=== PATIENT | female | born 1985 | race Caucasian/White ===

== ENCOUNTER 2025-03-15 16:53 | Emergency (ER) | payer BC, SELFPAY ==
[2025-03-15 17:08] VITALS: BP 106/67
--- NOTE | 2025-03-15 21:03 | ED.GENMED ---
History of Present Illness
General
Chief Complaint: Back Pain
Source: patient
Exam Limitations: none
Time Seen by Provider: 03/15/25 20:44
History of Present Illness
History of Present Illness:
39-year-old female presents complaining of lower back pain with pain radiating down the left posterior thigh and left posterior calf. This worsened all of a sudden yesterday. She has known chronic back pain. She has bilateral pars defects at L5.
She is due for an epidural steroid injection this coming Tuesday. She has been using ibuprofen in the past which has helped however last 2 days it has not. No numbness. No fever. No new injury. She is having trouble walking secondary to the
pain.
Phy Exam
Physical Exam
Physical Exam:
General: Well-appearing female no acute respiratory distress
HEENT: Normal cephalic atraumatic
Musculoskeletal exam: Patient is tender to the lower lumbar spine and the left lumbosacral junction.
Neurologic exam: Good strength to lower extremities bilateral patellar reflexes 2+. Negative straight leg raise bilaterally. Good sensation bilateral lower extremities
Course
Orders/Labs/Results
Orders:
Orders
03/15/25 20:59
Dexamethasone Sod Phosphate [Decadron] 10 mg IV NOW STA
Ketorolac [Toradol] 15 mg IV NOW STA
diazePAM [Valium Injection] 5 mg IV NOW STA
Vital Signs
Initial and Last Documented VS:
Initial Vital Signs
Temp Pulse Resp BP Pulse Ox
97.8 F 67 18 106/67 97
03/15/25 17:08 03/15/25 17:08 03/15/25 17:08 03/15/25 17:08 03/15/25 17:08
Last Documented Vital Signs
Temp Pulse Resp BP Pulse Ox
97.8 F 65 16 107/75 97
03/15/25 17:08 03/15/25 21:26 03/15/25 21:26 03/15/25 21:26 03/15/25 21:26
MDM/Problems Addressed
Differential Diagnosis Includes:
Patient with significant lower back pain that radiates down the left leg. No red flags to suggest cauda equina. No fever to assess infectious source. Most likely consistent with radiculopathy. Will try Decadron Toradol Valium.
*Pulse Oximetry
SaO2: 97
Oxygen Mode of Delivery: Room air
Patient hypoxic: no
*Critical Care Note
Total Time (30-74mins, 75-104mins- exclusive of procedures): Not Applicable
Update Note
Update Note:
Patient reexamined feeling much better after medicine. Will prescribe prednisone and muscle relaxers for her at home. Stable for discharge
ED Attending Note
-
Portions of this chart may have been created with voice recognition software.� Occasional wrong word or��sound alike� substitutions may have occurred due to the inherent limitations of voice recognition software.
Discharge Plan
Departure
Patient Disposition: Home (Routine Discharge)
Date of Disposition: 03/15/25
Time of Disposition: 22:01
Patient with high blood pressure during this ER visit?: No
Discharge Problem:
Acute left lumbar radiculopathy
Instructions: Radiculopathy (DC)
Prescriptions:
New
prednisone 10 mg Tablet
See Rx Instructions .ROUTE .COMPLEX Qty: 30 0RF
Rx Instructions:
Take By Mouth:
40 mg daily x3 days, 30 mg daily x3 days,
20 mg daily x3 days, 10 mg daily x3 days.
methocarbamol 750 mg tablet
750 mg PO TID PRN (Reason: spasm) Qty: 10 0RF
No Action
PNV,calcium [id number] acid [ Vitamin Plus Low Iron] 1 TABLET tablet
1 tab PO DAILY
acetaminophen 325 MG tablet
650 mg PO Q4HPRN PRN (Reason: mild pain) 0RF
sennosides-docusate sodium 1 TABLET tablet
1 tab PO DAILYPRN PRN (Reason: constipation) Qty: 30 0RF
ibuprofen 600 MG tablet
600 mg PO Q6HPRN PRN (Reason: moderate pain/cramps) Qty: 60 0RF
Referrals:
Elroy Roberts MD [Family Provider, Family Practice]
Activity Restrictions/Additional Instructions:
Use prescribed medicine as directed. Return here if worse otherwise follow-up as planned for your injection on Tuesday
Interventions
Interventions:
*Risk Screen - Suicide Last Done: 03/15/25 17:08
*Neglect/Abuse Screening Last Done: 03/15/25 17:08
*ED COVID-19 Vaccine History Last Done: 03/15/25 17:08
*ED Influenza Vaccine History Last Done: 03/15/25 17:08
[facility] Fall Risk Assessment Tool Last Done: 03/15/25 19:27
ED-Musculoskeletal Assessment Last Done: 03/15/25 19:26
Discharge Date and Time
Print Language: ITALIAN
[2025-03-15] MEDS: TORADOL 15 MG IV (21:09)
[2025-03-15] MEDS: DECADRON 10 MG IV (21:09)
[2025-03-15] MEDS: VALIUM INJECTION 5 MG IV (21:10)
[2025-03-15 21:26] VITALS: BP 107/75
== END 2025-03-15 21:45 | disposition home or self-care (01) ==
LOC: EMR 16:53
PROVIDERS: EMERGENCY PHYSICIAN Emergency Medicine; FAMILY PHYSICIAN Family Medicine
DX: M54.16 Radiculopathy, lumbar region (principal)
CPT/HCPCS: 99283; 96374; 96375